=== PATIENT | female | born 1950 | race Caucasian/White ===

== ENCOUNTER 2017-04-03 14:47 | Inpatient (IN) | payer MEDICARE ==
[2017-04-03] MEDS ORDERED: Naloxone 0.4 MG/ML SDV IV PRN (14:59)
[2017-04-03] MEDS ORDERED: HYDROmorphone/Normal Saline 15 MG/30 ML PCA IV PRN (14:59)
[2017-04-03] MEDS ORDERED: Lactated Ringers 500 ML IV ONE (15:00)
[2017-04-03] MEDS ORDERED: Ampicillin/Sulbactam Na 3 GM in Sodium Chloride 0.9% 100 ML IV ONE (15:30)
[2017-04-03] MEDS ORDERED: Meropenem 500 MG SDV ONE (15:36)
[2017-04-03] MEDS ORDERED: Bupivacaine 0.5%/EPINEPHrine 1:200,000 50 ML MDV ONE (15:36)
[2017-04-03] MEDS ORDERED: Neostigmine Methylsulfate 1 MG/ML 5 ML Syringe ONE (15:49)
[2017-04-03] MEDS ORDERED: Succinylcholine/Normal Saline 200 MG/10 ML Syringe ONE (15:49)
[2017-04-03] MEDS ORDERED: Rocuronium 50 MG/5 ML Vial ONE (15:49)
[2017-04-03] MEDS ORDERED: Propofol 200 MG/20 ML SDV ONE (15:49)
[2017-04-03] MEDS ORDERED: Dexamethasone 4 MG/ML SDV ONE (15:49)
[2017-04-03] MEDS ORDERED: Ondansetron 4 MG/2 ML SDV ONE (15:49)
[2017-04-03] MEDS ORDERED: Midazolam 1 MG/ML 2 ML SDV ONE (16:14)
[2017-04-03] MEDS: Dextrose 5%-Lactated Ringers 1,000 ML IV SCH (18:17)
[2017-04-03] MEDS ORDERED: diphenhydrAMINE 25 MG Cap PO PRN (18:24)
[2017-04-03] MEDS: cefOXitin 2 GM in Sodium Chloride 0.9% 50 ML IV SCH (19:59)
[2017-04-04] MEDS: Dextrose 5%-Lactated Ringers 1,000 ML IV SCH ×3 (00:36→16:34)
[2017-04-04] MEDS: cefOXitin 2 GM in Sodium Chloride 0.9% 50 ML IV SCH ×4 (02:39→19:52)
[2017-04-04] MEDS: Ondansetron 4 MG/2 ML SDV IV PRN ×2 (06:21→12:46)
[2017-04-04] MEDS: Sertraline 50 MG Tab PO SCH ×2 (09:00→12:49)
[2017-04-04] MEDS: Metoclopramide 10 MG/2 ML SDV IVPUSH SCH ×3 (09:00→19:52)
[2017-04-04] MEDS: Pantoprazole 40 MG Vial IVPUSH SCH (12:46)
[2017-04-04] MEDS ORDERED: busPIRone 5 MG Tab PO SCH (17:00)
[2017-04-04] MEDS: Calcium Carbonate 500 MG Tab.Chew PO PRN (19:36)
[2017-04-04] MEDS: busPIRone 5 MG Tab PO SCH (21:50)
[2017-04-05] MEDS: Metoclopramide 10 MG/2 ML SDV IVPUSH SCH ×3 (01:45→19:27)
[2017-04-05] MEDS: Calcium Carbonate 500 MG Tab.Chew PO PRN (01:45)
[2017-04-05] MEDS: cefOXitin 2 GM in Sodium Chloride 0.9% 50 ML IV SCH ×3 (01:48→13:22)
[2017-04-05] MEDS: Dextrose 5%-Lactated Ringers 1,000 ML IV SCH (03:38)
[2017-04-05] MEDS: Sertraline 50 MG Tab PO SCH (08:13)
[2017-04-05] MEDS ORDERED: Magnesium Hydroxide 400 MG/5 ML Susp 30 ML Cup PO ONE (09:00)
[2017-04-05] MEDS: Acetaminophen/HYDROcodone 325-5 MG Tab PO PRN ×2 (09:13→21:06)
--- NOTE | 2017-04-05 10:47 | OR ---
DATE OF PROCEDURE: 04/03/2017 PREOPERATIVE DIAGNOSIS: Acute appendicitis. POSTOPERATIVE DIAGNOSIS: Acute appendicitis with perforation and focal necrosis extending onto base of cecum along with pericolonic abscess. PROCEDURE: Diagnostic laparoscopy with, A. partial cystectomy with excision of the attached overlying appendix (77180). B. drainage of pericolonic abscess ([id number]). ANESTHESIA: General. INDICATION FOR PROCEDURE: This 66-year-old female presenting with a roughly 24-hour history of abdominal pain. Workup per Dr. Urbina showed acute appendicitis, which was confirmed by CAT scan. The patient had no previous abdominal surgeries. The plan is to proceed with a diagnostic laparoscopy, laparotomy if necessary, and appendectomy. Other procedures as indicated could be also required as was explained to the patient. Potential risks of procedure including bleeding, infection, injury to underlying viscera, possible leaks from the GI tract closures were all reviewed along with the remote possibility of cardiopulmonary, septic, or hemorrhagic complications leading to and the patient wishes to proceed. DETAILS OF PROCEDURE: The patient was taken to the operating room and placed in a supine position. After general endotracheal anesthesia was induced, a Ho catheter was inserted and the abdomen was prepped and draped. Three fingerbreadths superior and to the left of the umbilicus, a transverse incision was made, and the peritoneal cavity entered under direct vision with an Optiview trocar and inflated to 15 mmHg pressure with CO2. Laparoscope was then reinserted. No underlying trocar insertion site injuries were seen. Following this, 12-mm trocars were placed in the right upper quadrant and left lower quadrant, and the lower abdomen was examined. As one mobilized the cecum medially, a small roughly teaspoon-sized pericolonic abscess was then noted. This contained some brown almost stool-like material. The cultures of this were obtained and this was evacuated. The patient was subsequently noted to have a small perforation of the appendix where this fluid had likely leaked out. The patient had some necrosis at the base of the appendix, which extended somewhat onto the cecum, and therefore, a decision was made to proceed with a partial cecectomy with excision of the overlying appendix. The cecal staple line being roughly 2 cm away from the appendiceal base was then accomplished with a LIONEL purple load, this came across the cecum, which at this point appeared to be viable and likely to hold the patricia well. The underlying mesentery was then divided with Harmonic scalpel. The specimen was then placed in a specimen bag and retrieved through the left lower quadrant trocar site without direct contamination of the wound. At this point, no further problems were noted. No further accumulation of a purulent material or stool was evident on general exploration. Through a 5 mm trocar site in the right flank, a 10-Kyrgyz Chris-Philip drain was then placed across the cecal staple line and from there into the pelvis. The trocars were sequentially removed and the fascia at each of the sites was closed with 0 Vicryl stitch and the skin with a 4-0 Vicryl skin stitch. The patient was taken to the recovery room in satisfactory condition. There were no evident complications. Ap Carlos MD /[id number]
[2017-04-05] MEDS: Pantoprazole 40 MG Vial IVPUSH SCH (13:22)
[2017-04-05] MEDS: Acetaminophen 325 MG Tab PO PRN ×2 (13:24→17:51)
[2017-04-05] MEDS: Amoxicillin/Clavulanate K 875-125 MG Tab PO SCH ×2 (15:40→21:11)
--- NOTE | 2017-04-05 19:38 | PN ---
DATE OF SERVICE: 04/05/2017 SUBJECTIVE: The patient has been afebrile with stable vital signs oral pain medication. She may be ready for discharge home tomorrow. Ap Carlos MD /[id number]
[2017-04-05] MEDS: busPIRone 5 MG Tab PO SCH (21:06)
[2017-04-06] MEDS: Acetaminophen 325 MG Tab PO PRN (05:54)
[2017-04-06 07:54] VITALS: BP 142/84
[2017-04-06] MEDS: Acetaminophen/HYDROcodone 325-5 MG Tab PO PRN (08:00)
[2017-04-06] MEDS: Sertraline 50 MG Tab PO SCH (08:39)
[2017-04-06] MEDS ORDERED: Doxycycline 100 MG Cap PO SCH (09:00)
--- NOTE | 2017-04-06 20:55 | DISCH ---
ADMISSION DIAGNOSES: 1. Acute appendicitis. 2. Essential hypertension. 3. Anxiety disorder. DISCHARGE DIAGNOSIS: Perforated appendix with focal necrosis extending into the base of cecum with pericolonic abscess. Operative procedure is diagnostic lap with partial cecectomy with excision of en bloc attached appendix and drainage of pericolonic abscess. Date of surgery is 04/03/2017. HISTORY: Taina Ferreira is a 66-year-old female, who presented to Dr. Urbina's office with right lower quadrant pain. After preoperative evaluation and discussion of possible risks and possible complications, she wished to proceed with surgical procedure. HOSPITAL COURSE: Taina had her surgery on 04/03/2017. She had no operative complications. On postop day #1, she was started on a diet and advanced as tolerated. She was changed to oral pain medication and her activity was good. Vital signs were stable. The pain was well managed and she was able to be discharged to home without any postoperative complications on 04/06/2017. PHYSICAL EXAMINATION: GENERAL: Taina is a 66-year-old female. VITAL SIGNS: Height is 5 feet 2 inches. Weight is 159 pounds. TPR is 99.7, 96, 20, and blood pressure 142/84. HEENT: Negative. NECK: Supple. HEART: Regular rate and rhythm. LUNGS: Clear. ABDOMEN: Sutures in place. Abdominal binder has been on. EXTREMITIES: Without peripheral edema. A 4 x 4 was over ANNETTE drain site after removal. DISPOSITION: Discharged to home. CONDITION: Stable and improving. FOLLOWUP APPOINTMENT: With Taina Fisher PA-C, on 04/13/2017 at 10:00 a.m. DISCHARGE MEDICATIONS: New prescriptions: 1. [place] 5/325 mg 1 to 2 orally every 4 hours p.r.n. pain, #30. 2. Doxycycline 100 mg q.12 hours for 5 days. She is to resume her home medications of vitamin D3 at 5000 International Units daily, magnesium 1 tablet oral daily, Zoloft 50 mg oral daily, BuSpar 7.5 mg oral daily, and Benadryl 25 mg at bedtime p.r.n. insomnia. DIET AFTER DISCHARGE: Usual diet as tolerated. Drink 8 to 10 glasses a day. ACTIVITY AFTER DISCHARGE: No lifting greater than 10 pounds for 2 weeks. Walk at least 6 times daily inside your home. DISCHARGE INSTRUCTIONS: Driving, do not drive while on pain medication. Shower/bathing, may shower. Notify provider if any fever, increased pain, drainage, nausea or vomiting. Wound incision care, keep site clean and dry. Use incentive spirometer 10 times every hour while awake for 2 weeks.
--- NOTE | 2017-04-08 08:53 | PN ---
DATE OF SERVICE: 04/04/2017 The patient has been afebrile with stable vital signs overnight. She has been nauseated and had a couple of small emeses, I think we'll add some Reglan to the medication regimen. Otherwise, we'll turn down the IV rate, maximize activity, and work on pulmonary toilet. I will continue the present IV antibiotics. The pericolonic abscess have both Gram negative and Gram positive rods consistent with GI tract terrance. One would expect that Cefoxitin should cover that well and there is no purulent material left in place at the end of the procedure. Ap Carlos MD /[id number]
== END 2017-04-06 09:17 | disposition home or self-care (01) | DRG 331 ==
LOC: JP.2SS 14:47
PROVIDERS: ADMIT Surgery; ATTEND Surgery
DX: K35.3 Acute appendicitis with localized peritonitis (principal); I10 Essential (primary) hypertension; F41.9 Anxiety disorder, unspecified
CPT/HCPCS: 87070; 87075; 87077; 87186; 87205; 88304; 94762; A9270-GY; C9113; J0295; J0694; J1100; J1170; J2185; J2250; J2405; J2704; J2765; J3010; J7030; J7042; J7050

== ENCOUNTER 2017-05-14 07:52 | Day surgery (SDC) | payer MEDICARE ==
[~2017-05-14 07:52] MED LIST: Bupivacaine 0.5% 50 ML MDV ONE; Lidocaine 1% with EPINEPHrine 1:100,000 50 ML MDV ONE
[2017-05-14] MEDS ORDERED: Midazolam 1 MG/ML 2 ML SDV ONE (08:29)
[2017-05-14] MEDS ORDERED: fentaNYL 100 MCG/2 ML SDV ONE (08:29)
[2017-05-14] MEDS ORDERED: Propofol 200 MG/20 ML SDV ONE (08:29)
[2017-05-14] MEDS ORDERED: Dextrose 5%-Lactated Ringers 1,000 ML IV SCH (08:45)
[2017-05-14] MEDS ORDERED: Succinylcholine 200 MG/10 ML MDV ONE (08:49)
[2017-05-14 11:32] VITALS: BP 149/83
--- NOTE | 2017-05-19 13:02 | OR ---
DATE OF PROCEDURE: 05/14/2017 PREOPERATIVE DIAGNOSIS: Inflamed epidermoid cyst, left neck. POSTOPERATIVE DIAGNOSIS: Inflamed epidermoid cyst, left neck, adherent to sternocleidomastoid muscle fascia. OPERATIVE PROCEDURE: Excision of inflamed epidermoid cyst, left neck, adherent to sternocleidomastoid muscle fascia ([id number]). ANESTHESIA: Local plus IV sedation. INDICATION FOR PROCEDURE: A 66-year-old presenting with an inflamed epidermoid cyst located in the mid left neck. Plan is to proceed with excision of this. The potential risks including bleeding, infection, injury to nerves in the vicinity were reviewed, and the patient wishes to proceed. DETAILS OF PROCEDURE: The patient was taken to the operating room and placed in a supine position. After IV sedation was administered, the area was prepped and draped, as the head was turned somewhat towards the right. The area was then anesthetized with 1% lidocaine mixed with Marcaine. An elliptically-oriented incision in line with the skin crease was made and carried down through the skin and subcutaneous tissue. The deep plane of the cyst adherence was essentially attached to the sternocleidomastoid muscle fascia. This fascia was excised, along with the cyst, and the cyst removed intact. Deeper soft tissue was then approximated with some 4-0 Vicryl stitch and the skin with a 5-0 Vicryl subcuticular stitch. Steri-Strips were applied. The patient was taken to the recovery room in satisfactory condition. Ap Carlos MD /[id number]
== END 2017-05-14 11:55 | disposition home or self-care (01) ==
LOC: JP.SDS 07:52
PROVIDERS: ATTEND Surgery
DX: L72.0 Epidermal cyst (principal); I10 Essential (primary) hypertension; Z79.899 Other long term (current) drug therapy
CPT/HCPCS: 21556; J2250; J2704; J3010; J7042; 88304; J0330

== ENCOUNTER 2018-05-29 21:01 | Emergency (ER) | payer MEDICARE ==
[2018-05-29 21:13] VITALS: BP 153/72
--- NOTE | 2018-05-29 22:01 | EDM.PDOC ---
ED HPI GENERAL MEDICAL PROBLEM - General Chief Complaint: General Stated Complaint: MED ALLERGY Time Seen by Provider: 05/29/18 21:30 Source of Information: Reports: Patient, Family, RN Notes Reviewed History Limitations: Reports: No Limitations - History of Present Illness INITIAL COMMENTS - FREE TEXT/NARRATIVE: Taina presents today for complaints of flushing of face after being discharged from [facility] for surgical intervention of Avascular necrosis of the right hip completed on 05/28/18 Right Hip Pain Score (Numeric/FACES): 6 - Related Data Allergies Allergy/AdvReac Type Severity Reaction Status Date / Time amoxicillin [From Augmentin] Allergy Rash Verified 05/29/18 21:24 clavulanic acid Allergy Rash Verified 05/29/18 21:24 [From Augmentin] clindamycin Allergy Rash Verified 05/29/18 21:24 doxycycline Allergy Itching Verified 05/29/18 21:24 erythromycin base AdvReac Stomach Verified 05/29/18 21:24 [Erythromycin Base] Ache Home Meds: Home Meds diphenhydrAMINE [Benadryl] 25 mg PO BEDTIME PRN 07/18/14 [History] SUMAtriptan Succinate [Imitrex] 25 mg PO ASDIRECTED PRN 05/13/17 [History] Magnesium Oxide [Magnesium] 400 mg PO DAILY 05/14/17 [History] Acetaminophen 1,000 mg PO TID 05/29/18 [History] Apixaban [Eliquis] 2.5 mg PO BID 05/29/18 [History] LORazepam 0.5 mg PO Q6H PRN 05/29/18 [History] Sennosides/Docusate Sodium [Senna-Docusate Sodium] 1 each PO BID 05/29/18 [ History] oxyCODONE 5 mg PO Q4H PRN 05/29/18 [History] traMADol [Ultram] 50 mg PO TID 05/29/18 [History] Past Medical History HEENT History: Reports: Cataract Cardiovascular History: Reports: Hypertension Gastrointestinal History: Reports: Hemorrhoids 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: Neurological History: Reports: Concussion, Migraines Psychiatric History: Reports: Anxiety Oncologic (Cancer) History: Reports: Breast Other Dermatologic History: occasional psoriasis, phlebitis in leg - Infectious Disease History Infectious Disease History: Reports: Chicken Pox - Past Surgical History Other HEENT Surgeries/Procedures: some swallowing difficulties GI Surgical History: Reports: Appendectomy, Colonoscopy Female Surgical History: Reports: Breast Biopsy Musculoskeletal Surgical History: Reports: Hip Replacement Oncologic Surgical History: Reports: Biopsy of Breast, Lumpectomy Dermatological Surgical History: Reports: Other (See Below) Social & Family History - Tobacco Use Smoking Status *Q: Never Smoker Second Hand Smoke Exposure: No - Caffeine Use Caffeine Use: Reports: Coffee, Soda Caffeine Use Comment: 2-3 cups daily. - Recreational Drug Use Recreational Drug Use: No ED ROS GENERAL - Review of Systems Review Of Systems: See Below Constitutional: Denies: Fever, Chills, Malaise, Weakness HEENT: Denies: Nose Pain, Throat Pain, Throat Swelling Respiratory: Denies: Shortness of Breath, Wheezing, Cough, Sputum Cardiovascular: Reports: No Symptoms Endocrine: Reports: No Symptoms GI/Abdominal: Reports: No Symptoms Musculoskeletal: Reports: Other (Right hip pain, right hip surgery [facility] 05/28/18 for avascular necrosis. Discharged today.) Skin: Reports: Other (flushing of face). Denies: Pallor, Diaphoresis, Pruritis , Rash, Erythema Neurological: Denies: Confusion, Dizziness, Headache, Numbness, Tingling, Weakness Psychiatric: Reports: No Symptoms Hematologic/Lymphatic: Reports: No Symptoms Immunologic: Reports: No Symptoms ED EXAM, GENERAL - Physical Exam Exam: See Below Free Text/Narrative:: Taina is an alert and oriented 67 year old female presenting for complaints of flushing in the face that started today. She was discharged from [facility] today after right hip surgical intervention for avascular necrosis fo right femoral head. She was given tramadol, oxycodone, acetaminophen and elloquis. She denies fever, chills, rash, swelling of lips, tongue, throat or face or other concerns. Exam Limited By: No Limitations General Appearance: Alert, WD/WN, No Apparent Distress Eye Exam: Bilateral Eye: EOMI, Normal Inspection, PERRL Ears: Normal External Exam, Normal Canal, Hearing Grossly Normal, Normal TMs Ear Exam: Bilateral Ear: Auricle Normal, Canal Normal, TM normal Nose: Normal Inspection, Normal Mucosa, No Blood Throat/Mouth: Normal Inspection, Normal Lips, Normal Gums, Normal Oropharynx, Normal Voice, No Airway Compromise Head: Atraumatic, Normocephalic Neck: Normal Inspection, Supple, Non-Tender, Full Range of Motion. No: Lymphadenopathy (R), Lymphadenopathy (L) Respiratory/Chest: No Respiratory Distress, Lungs Clear, Normal Breath Sounds, No Accessory Muscle Use, Chest Non-Tender Cardiovascular: Normal Peripheral Pulses, Regular Rate, Rhythm, No Edema, No Murmur, No Rub Peripheral Pulses: 2+: Radial (L), Radial (R), Dorsalis Pedis (L), Dorsalis Pedis (R) GI/Abdominal: Normal Bowel Sounds, Soft, Non-Tender, No Distention, No Mass Back Exam: Normal Inspection, Full Range of Motion. No: CVA Tenderness (R), CVA Tenderness (L) Extremities: Normal Inspection, Normal Range of Motion, Non-Tender, No Pedal Edema, Normal Capillary Refill Neurological: Alert, Oriented, CN II-XII Intact, Normal Cognition, No Motor/ Sensory Deficits Psychiatric: Normal Affect, Normal Mood Skin Exam: Warm, Dry, Intact, Normal Color, No Rash. No: Erythema Lymphatic: No Adenopathy Course - Vital Signs Last Recorded V/S: Last Vital Signs Temp 37.4 C 05/29/18 21:23 Pulse 90 05/29/18 21:23 Resp 16 05/29/18 21:23 BP 153/72 H 05/29/18 21:23 Pulse Ox 97 05/29/18 21:23 - Re-Assessments/Exams Free Text/Narrative [facility], discussed patient status, assessment and medications. Flushing most likely from tramadol - medication side effect, not an adverse reaction. Taina can quit use of tramadol and continue all other medications. Patient and her family are in agreement with plan. Departure - Departure Time of Disposition: 22:17 Disposition: Home, Self-Care 01 Condition: Good Clinical Impression: Medication side effect - Discharge Information *PRESCRIPTION DRUG MONITORING PROGRAM REVIEWED*: No *COPY OF PRESCRIPTION DRUG MONITORING REPORT IN PATIENT URMILA: No Referrals: Gael Urbina Sr, MD [Primary Care Provider] - Forms: ED Department Discharge Additional Instructions: You have been evaluated and treated for a medication side effect. Stop use of tramadol. Continue all your other medications as directed. Do not use benadryl while taking oxycodone due to the significant sedating effects. Follow up with Dr. Urbina on Thursday if flushing continues. Return for worsening, issues or concerns. - Assessment/Plan Assessment:: Medication side effect Plan: Patient evaluated and treated for a medication side effect. Stop use of tramadol. Continue all your other medications as directed. Do not use benadryl while taking oxycodone due to the significant sedating effects. Follow up with Dr. Urbina on Thursday if flushing continues. Return for worsening, issues or concerns.
== END 2018-05-29 22:45 | disposition home or self-care (01) ==
LOC: JP.ED 21:01
DX: R23.2 Flushing (principal); I10 Essential (primary) hypertension; Z79.899 Other long term (current) drug therapy; Z88.1 Allergy status to other antibiotic agents; Z88.8 Allergy status to other drugs, medicaments and biological substances
CPT/HCPCS: 99282; 99283

== ENCOUNTER 2021-04-26 09:29 | Emergency (ER) | payer MEDICARE ==
[2021-04-26] MEDS ORDERED: LORazepam 1 MG Tab PO ONE (10:09)
--- NOTE | 2021-04-26 10:31 | EDM.PDOC ---
ED HPI GENERAL MEDICAL PROBLEM - General Chief Complaint: Neurological Problem Stated Complaint: CHEST PAIN Time Seen by Provider: 04/26/21 09:45 Source of Information: Reports: Patient, Family History Limitations: Reports: No Limitations - History of Present Illness INITIAL COMMENTS - FREE TEXT/NARRATIVE: 70-year-old female with a long history of migraine headaches, aura, but usually no peripheral symptoms had a migraine yesterday and took Imitrex. She was in the local store this morning 45 minutes ago when she developed numbness in her left hand, some numbness in her tongue and some mild dysarthria. She had no pain, no weakness, she did became very anxious and shaky and called her and he brought her in to be seen. Symptoms lasted 10 to 20 minutes, they are now gone. She still is extremely anxious. Onset: Sudden Duration: Minutes: (45 minutes ago) Location: Reports: Face, Upper Extremity, Left Quality: Reports: Other (Only numbness was her symptom, no pain or weakness) Headache Pain Score (Numeric/FACES): 3 - Related Data Allergies Allergy/AdvReac Type Severity Reaction Status Date / Time amoxicillin [From Augmentin] Allergy Rash Verified 04/26/21 09:41 clavulanic acid Allergy Rash Verified 04/26/21 09:41 [From Augmentin] clindamycin Allergy Rash Verified 04/26/21 09:41 doxycycline Allergy Itching Verified 04/26/21 09:41 erythromycin base AdvReac Stomach Verified 04/26/21 09:41 [Erythromycin Base] Ache Home Meds: Home Meds SUMAtriptan succinate [Imitrex] 25 mg PO ASDIRECTED PRN 05/13/17 [History] Magnesium Oxide [Magnesium] 400 mg PO DAILY 05/14/17 [History] Acetaminophen 1,000 mg PO TID 05/29/18 [History] LORazepam 0.25 mg PO Q6H PRN 05/29/18 [History] Clobetasol [Clobetasol Propionate 0.05% Cream] 1 applic TOP DAILY 01/03/20 [History] traZODone HCl [Trazodone HCl] 50 mg PO BEDTIME PRN 01/03/20 [History] Metoprolol Succinate [Toprol XL] 25 mg PO DAILY 04/26/21 [History] Pseudoephedrine HCl [Sudafed] 30 mg PO ASDIRECTED PRN 04/26/21 [History] Past Medical History HEENT History: Reports: Cataract Cardiovascular History: Reports: High Cholesterol, Hypertension Respiratory History: Reports: SOB Gastrointestinal History: Reports: Hemorrhoids Genitourinary History: Reports: None 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: Neurological History: Reports: Concussion, Migraines Psychiatric History: Reports: Anxiety Endocrine/Metabolic History: Reports: None Hematologic History: Reports: None Immunologic History: Reports: None Oncologic (Cancer) History: Reports: Breast Dermatologic History: Reports: Psoriasis Other Dermatologic History: occasional psoriasis, phlebitis in leg - Infectious Disease History Infectious Disease History: Reports: Chicken Pox, Mumps, Novel Coronavirus - Past Surgical History Other HEENT Surgeries/Procedures: some swallowing difficulties Other Respiratory Surgeries/Procedures: pulmonary fuction test for SOB GI Surgical History: Reports: Appendectomy, Colonoscopy Female Surgical History: Reports: Breast Biopsy Musculoskeletal Surgical History: Reports: Hip Replacement Other Musculoskeletal Surgeries/Procedures:: right Oncologic Surgical History: Reports: Biopsy of Breast, Lumpectomy Dermatological Surgical History: Reports: Other (See Below) Social & Family History - Tobacco Use Tobacco Use Status *Q: Never Tobacco User - Caffeine Use Caffeine Use: Reports: Coffee Caffeine Use Comment: 2-3 cups daily. - Recreational Drug Use Recreational Drug Use: No ED ROS GENERAL - Review of Systems Review Of Systems: See Below Constitutional: Denies: Fever, Chills HEENT: Reports: Other (Aura prior to her migraines, none currently). Denies: Vision Change Respiratory: Denies: Shortness of Breath GI/Abdominal: Denies: Abdominal Pain, Nausea, Vomiting Neurological: Reports: Tingling (Face and left hand, resolved), Tremors (Feels shaky and anxious all over) Psychiatric: Reports: Anxiety ED EXAM, NEURO - Physical Exam Exam: See Below Exam Limited By: No Limitations General Appearance: Alert, Anxious Eye Exam: Bilateral Eye: Normal Inspection, PERRL Head Exam: Atraumatic, Normocephalic Neck: Supple, Non-Tender. No: Carotid Bruit, Lymphadenopathy (R), Lymphadenopathy (L) Respiratory/Chest: No Respiratory Distress, Lungs Clear Cardiovascular: Regular Rate, Rhythm, No Murmur. No: Tachycardia, Extra Beats GI/Abdominal: Soft, Non-Tender Neurological: Alert, No Motor/Sensory Deficits, Oriented x 3, Other (I could not find any objective findings of weakness, numbness or asymmetry of the extremities or face. Speech is now clear) Extremities: Normal Inspection. No: Pedal Edema Psychiatric: Anxious (Patient still very anxious) Skin Exam: Warm, Dry Course - Vital Signs Last Recorded V/S: Last Vital Signs Temp 97.1 F 04/26/21 09:51 Pulse 101 H 04/26/21 11:38 Resp 18 04/26/21 11:38 BP 146/84 H 04/26/21 11:38 Pulse Ox 98 04/26/21 11:38 - Orders/Labs/Meds Meds: Medications Discontinued Medications Generic Name Dose Route Start Last Admin Trade Name Adrian PRN Reason Stop Dose Admin Gadoteridol 15 ml 04/26/21 11:00 04/26/21 11:11 Gadoteridol 279.3 Mg/Ml 15 Ml Sdv IV 04/26/21 11:01 15 ml .A DIRECTED KAIDEN Administration Ibuprofen 600 mg 04/26/21 11:30 04/26/21 11:37 Ibuprofen 600 Mg Tab PO 04/26/21 11:31 600 mg ONETIME ONE Administration Lorazepam 1 mg 04/26/21 10:09 04/26/21 10:15 Lorazepam 1 Mg Tab PO 04/26/21 10:10 1 mg ONETIME ONE Administration - Re-Assessments/Exams Free Text/Narrative Re-Assessment/Exam: 04/26/21 10:36 Patient was given 1 mg of oral Ativan, and there is an opening in the MRI so she will be transferred back for an MRI of the brain with and without contrast. She has not redeveloped symptoms. 04/26/21 11:39 Patient tolerated the MRI well, still having some headache so was given 600 mg of oral ibuprofen. Has not redeveloped any neurologic symptoms other than the headache, and we are waiting results. Blood pressure has normalized as well. 04/26/21 11:59 MRI is read as completely normal. Patient was reassured, increase activity as tolerated and will restart her metoprolol as prescribed. Departure - Departure Time of Disposition: 12:19 Disposition: Home, Self-Care 01 Clinical Impression: Arm paresthesia, left, Vascular headache - Discharge Information Instructions: Paresthesia, [id number] Referrals: Gael Urbina Sr, MD [Primary Care Provider] - Forms: ED Department Discharge, ED Department Discharge Care Plan Goals: Start your metoprolol daily as prescribed. Increase activity as tolerated and recheck with Dr. Urbina if you have any persistent concerns. Sepsis Event Note (ED) - Evaluation Sepsis Screening Result: No Definite Risk - Focused Exam Vital Signs: Vital Signs Temp Pulse Resp BP Pulse Ox 04/26/21 11:38 101 H 18 146/84 H 98 04/26/21 10:02 98 18 179/96 H 99 04/26/21 09:51 97.1 F 105 H 20 184/101 H 99 04/26/21 09:35 97.1 F 105 H 20 184/101 H 99
[2021-04-26] MEDS ORDERED: Gadoteridol 279.3 MG/ML 15 ML SDV IV SCH (11:00)
[2021-04-26] MEDS ORDERED: Ibuprofen 600 MG Tab PO ONE (11:30)
[2021-04-26 11:39] VITALS: BP 146/84; PULSE 101
--- NOTE | 2021-04-26 11:55 | MR ---
Brain w wo Cont CLINICAL HISTORY: TIA like symptoms COMPARISON: 2012 TECHNIQUE: Multiple axial, sagittal, and coronal images were obtained on a 1.5 T magnet with multiweighted sequences, FLAIR, and diffusion imaging without contrast. FINDINGS: There is no focal mass lesion. There is no hemmorhage or extraaxial collection. No restricted diffusion is identified. There are scattered small hyperintensities on FLAIR and T2-weighted images in the periventricular and subcortical white matter. The basal cisterns and sulci over the convexities are normal. The ventricles are normal. IMPRESSION: No acute intracranial process Chronic ischemic microvascular ischemic changes similar to 2012
== END 2021-04-26 12:20 | disposition home or self-care (01) ==
LOC: JP.ED 09:29
DX: R20.2 Paresthesia of skin (principal); G44.1 Vascular headache, not elsewhere classified; E78.00 Pure hypercholesterolemia, unspecified; I10 Essential (primary) hypertension; Z88.0 Allergy status to penicillin; Z88.1 Allergy status to other antibiotic agents
CPT/HCPCS: 70553; 99284; A9270; A9579

== ENCOUNTER 2024-08-19 13:58 | Emergency (ER) | payer MEDICARE ==
[2024-08-19 15:58] LABS: BASOPHILS ABSOLUTE AUTO 0.09 K/uL (0.00-0.10); BASOPHILS PERCENT AUTO 1.2 % (0.1-1.3); EOSINOPHILS PERCENT AUTO 1.3 % (0.0-5.4); HEMATOCRIT 39.5 % (34.3-46.0); HEMOGLOBIN 13.3 g/dL (11.2-15.5); IMMATURE GRAN ABSOLUTE AUTO 0.01 K/uL (0.00-0.23); IMMATURE GRAN PERCENT AUTO 0.1 % (0.0-0.7); LYMPHOCYTES ABSOLUTE AUTO 1.88 K/uL (0.8-3.3); MEAN CORPUSCULAR HEMOGLOBIN 29.8 pg (31.6-35.5); MEAN CORPUSCULAR HGB CONC 33.7 g/dL (31.6-35.5); MEAN CORPUSCULAR VOLUME 88.6 fL (81.4-99.0); MONOCYTES ABSOLUTE AUTO 0.88 K/uL (0.20-0.90); MONOCYTES PERCENT AUTO 11.3 % (3.3-12.6); NEUTROPHILS ABSOLUTE AUTO 4.86 K/uL (1.0-7.6); NEUTROPHILS PERCENT AUTO 62.1 % (40.0-78.1); PLATELET COUNT,PLT 250 K/uL (130-375); RED BLOOD CELL COUNT 4.46 M/uL (3.77-5.24); WHITE BLOOD CELL COUNT,WBC 7.8 K/uL (3.2-11.0)
[2024-08-19 16:14] LABS: CALCIUM 9.4 mg/dL (8.5-10.1); CREATININE 1.1 mg/dL (0.6-1.0); EST CRCL DRUG DOSING (CG) 35.49 mL/min; POTASSIUM,K 4.2 mmol/L (3.6-5.2)
[2024-08-19 16:15] LABS: ANION GAP 11.2 mmol/L (5.0-14.0)
[2024-08-19] MEDS: cloNIDine 0.1 MG Tab PO ONE (16:20)
[2024-08-19] MEDS: hydrALAZINE 20 MG/ML SDV IVPUSH ONE (17:08)
[2024-08-19] MEDS: Sodium Chloride 0.9% 10 ML Syringe FLUSH PRN (17:12)
[2024-08-19] MEDS: Acetaminophen 500 MG Tab PO ONE (17:35)
[2024-08-19 17:36] VITALS: BP 163/104; PULSE 97
== END 2024-08-19 18:42 | disposition home or self-care (01) ==
LOC: JP.ED 13:58
DX: R20.2 Paresthesia of skin (principal); I10 Essential (primary) hypertension; Z86.16 Personal history of COVID-19; Z90.49 Acquired absence of other specified parts of digestive tract; Z96.649 Presence of unspecified artificial hip joint; Z88.0 Allergy status to penicillin; Z88.1 Allergy status to other antibiotic agents; Z88.8 Allergy status to other drugs, medicaments and biological substances; Z79.899 Other long term (current) drug therapy
CPT/HCPCS: 36415; 70450; 80048; 83735; 85025; 96374; 99284; A9270; J0360; J3490

== ENCOUNTER 2024-09-12 15:35 | Emergency (ER) | payer MEDICARE ==
[2024-09-12] MEDS: LORazepam 0.5 MG Tab PO ONE (16:23)
[2024-09-12] MEDS: Acetaminophen 500 MG Tab PO ONE (16:43)
[2024-09-12 17:09] VITALS: BP 181/112; PULSE 100
== END 2024-09-12 17:22 | disposition home or self-care (01) ==
LOC: JP.ED 15:35
DX: R20.2 Paresthesia of skin (principal); I10 Essential (primary) hypertension; Z90.49 Acquired absence of other specified parts of digestive tract; Z96.649 Presence of unspecified artificial hip joint; Z88.1 Allergy status to other antibiotic agents; Z88.0 Allergy status to penicillin; Z88.8 Allergy status to other drugs, medicaments and biological substances; Z79.899 Other long term (current) drug therapy
CPT/HCPCS: 99283; A9270